=== PATIENT | male | born 1955 | race Two or more races ===

== ENCOUNTER 2024-01-08 15:09 | Emergency (ER) | payer MEDICARE ==
[~2024-01-08] VITALS: Ht 177.8 cm; Wt 79.4 kg
[2024-01-08 15:15] VITALS: O2SAT 99
== END 2024-01-08 16:16 | disposition home or self-care (01) ==
LOC: ER 15:13
DX: S61.411A Laceration without foreign body of right hand, initial encounter (principal); E11.9 Type 2 diabetes mellitus without complications; W45.8XXA Other foreign body or object entering through skin, initial encounter; Y93.89 Activity, other specified; Y92.89 Other specified places as the place of occurrence of the external cause; Y99.8 Other external cause status
CPT/HCPCS: A4606; A4663